=== PATIENT | female | born 1965 | race Caucasian/White ===

== ENCOUNTER 2017-08-06 16:33 | Inpatient (IN) | payer OTHER ==
[~2017-08-06] VITALS: Ht 160 cm; Wt 74.0 kg
[2017-08-06 16:35] VITALS: Ht 160 cm; Wt 74.0 kg
[2017-08-06] MEDS ORDERED: HYDROmorphONE 0.5 MG/0.5 ML SYG IM STA (17:40)
[2017-08-06] MEDS ORDERED: ONDANSETRON (ODT) 4 MG TAB ODT STA (17:40)
--- NOTE | 2017-08-06 18:03 | ERD ---
ER Documentation Chief Complaint Chief Complaint LEFT KNEE PAIN S/P FELL FROM STEP LADDER, NO KO, BIB RA 39 (RONNY WHALEN PA-C) HPI 52-year-old female complains of left posterior knee pain after falling off a step ladder this afternoon and "splitting her leg. She states that she was trying to go off of a stepladder and she fell and her leg fell externally. She states that she is felt like her legs were splitting open, and has posterior severe pain behind the knee on the left side, she has numbness down her leg. She denies any lower extremity pain besides the knee, foot or ankle pain. (RONNY WHALEN PA-C) ROS All systems reviewed and are negative except as per history of present illness. (RONNY WHALEN PA-C) Medications Home Meds Discontinued Reported Medications [None] No Conflict Check 01/10/15 Allergies Allergies: Coded Allergies: Penicillins (Unverified Allergy, Mild, RASHES; ITCH, 08/06/17) ampicillin (Unverified Allergy, Mild, RASHES; ITCH, 08/06/17) PMhx/Soc History of Surgery: Yes ([facility]) Anesthesia Reaction: Yes (N/V) Hx Neurological Disorder: No Hx Respiratory Disorders: No Hx Cardiac Disorders: No Hx Psychiatric Problems: No Hx Miscellaneous Medical Probl: No Hx Alcohol Use: Yes () Hx Substance Use: No Hx Tobacco Use: No (2010) Smoking Status: Former smoker (RONNY WHALEN PA-C) Physical Exam Vitals Vital Signs Date Time Temp Pulse Resp B/P Pulse Ox O2 Delivery O2 Flow Rate FiO2 08/07/17 00:49 78 18 112/76 97 Room Air 08/06/17 22:30 76 18 104/77 99 Room Air 08/06/17 20:29 98.1 72 20 138/69 98 Room Air 08/06/17 16:35 98.9 72 18 182/71 100 (MARK MUKHERJEE MD) Physical Exam General: Well-developed, well-nourished. The patient appears in no acute distress. HEENT: Head is normocephalic, atraumatic. No scleral icterus. Neck: Supple. Nontender. Lungs: Clear to auscultation. Normal air movement. Heart: Regular rate and rhythm. S1 and S2 are normal. No murmurs, gallops, or rubs. Abdomen: Nondistended. Extremities: Patient has limited range of motion of flexion, she has her leg hyperextended, no gross bony deformities on examination. Patient's dorsalis pedis pulses are 2+ bilaterally. Neurologic: Alert and oriented 3. No focal deficits. Normal speech and gait. Skin: Normal turgor. No rash or lesions. (RONNY WHALEN PA-C) Result Diagram: 08/06/17200808/06/172008 Results 24 hrs Laboratory Tests Test 08/06/17 20:09 White Blood Count 9.710^3/ul Red Blood Count 4.5210^6/ul Hemoglobin 12.3g/dl Hematocrit 38.1% Mean Corpuscular Volume 84.3fl Mean Corpuscular Hemoglobin 27.2pg Mean Corpuscular Hemoglobin Concent 32.3g/dl Red Cell Distribution Width 15.0% Platelet Count 21438^3/UL Mean Platelet Volume 10.4fl Neutrophils % 86.1% Lymphocytes % 10.0% Monocytes % 3.2% Eosinophils % 0.2% Basophils % 0.2% Nucleated Red Blood Cells % 0.0/100WBC Neutrophils # 8.310^3/ul Lymphocytes # 1.010^3/ul Monocytes # 0.310^3/ul Eosinophils # 0.010^3/ul Basophils # 0.010^3/ul Nucleated Red Blood Cells # 0.010^3/ul Prothrombin Time 13.1Sec Prothrombin Time Ratio 1.0 INR International Normalized Ratio 0.99 Activated Partial Thromboplast Time 33.1Sec Sodium Level 141mmol/L Potassium Level 3.6mmol/L Chloride Level 102mmol/L Carbon Dioxide Level 25mmol/L Anion Gap 18 Blood Urea Nitrogen 11mg/dl Creatinine 0.84mg/dl Glucose Level 96mg/dl Calcium Level 9.3mg/dl Troponin I < 0.012ng/ml Current Medications Medications (Trade) Dose Ordered Sig/Arnav Route PRN Reason Start Time Stop Time Status Last Admin Dose Admin Hydromorphone HCl (Dilaudid) 0.5 mg ONCE STAT IM 08/06/17 17:40 08/06/17 17:42 DC 08/06/17 17:52 Ondansetron HCl (Zofran Odt) 4 mg ONCE STAT ODT 08/06/17 17:40 08/06/17 17:42 DC 08/06/17 17:52 Hydromorphone HCl (Dilaudid) 1 mg ONCE STAT IM 08/06/17 18:42 08/06/17 19:25 DC Hydromorphone HCl (Dilaudid) 1 mg ONCE STAT IV 08/06/17 19:22 08/06/17 19:24 DC 08/06/17 19:57 Ondansetron HCl 4 mg 4 mg ONCE STAT IV 08/06/17 19:22 08/06/17 19:24 DC 08/06/17 20:01 Sodium Chloride (NS) 1,000 ml @ 1,000 mls/hr Q1H ONCE IV 08/06/17 19:30 08/06/17 20:29 DC 08/06/17 20:01 Hydromorphone HCl (Dilaudid) 1 mg ONCE STAT IV 08/06/17 20:54 08/06/17 20:55 DC 08/06/17 21:01 Ondansetron HCl (Zofran Inj) 4 mg ONCE STAT IV 08/06/17 20:54 08/06/17 20:55 DC 08/06/17 21:01 Hydromorphone HCl (Dilaudid) 1 mg ONCE STAT IV 08/06/17 22:57 08/06/17 22:58 DC 08/06/17 23:04 Ondansetron HCl (Zofran Inj) 4 mg ONCE STAT IV 08/06/17 22:57 08/06/17 22:58 DC 08/06/17 23:04 Hydromorphone HCl (Dilaudid) 1 mg ONCE ONCE IV 08/07/17 01:45 08/07/17 01:46 DC (MARK MUKHERJEE MD) Results 24 hrs 12-lead EKG(interpreted by supervising physician): Reviewed by Dr. Morrow Rate/Rhythm: Normal Sinus Rhythm, rate of 74 QRS, ST, T-waves: No changes consistent w/ acute ischemia, no intervals, no dysrhythmias, no ectopy Impression: No evidence of ischemia or arrhythmia DIAGNOSTIC IMAGING REPORT Patient: DYLON ESTEVES : 1965 Age: 52 Sex: F MR #: [id number] DOS: 08/06/17 1756 Ordering MD: MARLEE, RONNY PA-C Location: [facility] Room/Bed: PROCEDURE: Left knee x-ray. CLINICAL INDICATION: Trauma to left knee TECHNIQUE: AP, oblique and lateral views of the left knee. COMPARISON: None FINDINGS: Comminuted intra-articular fracture of the lateral and medial tibial plateau. Recommend CT correlation. Depressed central fragment seen at the lateral tibial plateau. Lipohemarthrosis. IMPRESSION: Comminuted interarticular fracture of the lateral and medial tibial plateau, and recommend CT correlation. RPTAT: [facility] Physician Mateus Date Time Electronically viewed and signed by Physician Mateus on 08/06/2017 19:13 RS/ CC: RONNY WHALEN PA-C (RONNY WHALEN PA-C) Procedures/MDM The course: Patient was given Dilaudid 0.5 mg IM, and Zofran 4 mg ODT. 52-year-old female comes in with left knee pain after trauma, coming in with a comminuted intra-articular fracture of the lateral and medial tibial plateau, CT of the lower extremity will be ordered at this time. The patient does have good pulses and is neurovascularly intact. CT results pending at this time prior to counseling alternate orthopedics. Preop labs and workup will be initiated. Patient's blood pressure was elevated (>120/80) but appears stable without evidence of hypertension emergency or urgency. The patient was counseled about the risks of hypertension and urged to pursue outpatient monitoring and therapy within a week with their primary care physician. (RONNY WHALEN PA-C) I was informed at midnight that the patient had been admitted on a previous shift to hospitalist for tibial plateau fracture. Nursing requested that I order additional pain medications. I evaluated the patient, and she did not have a splint on her left leg. I was informed that the patient had refused a splint. I advised the nurse and patient that a splint is completely necessary, as well as elevation of the extremity. The patient had soft compartments, no pain with passive range of motion of the ankle or great toe, and a 2+ palpable DP pulse. I spoke with Dr. Astorga, orthopedic surgeon on-call, and he agreed to see the patient. Spoke with Dr. Lord, who agreed to admit the patient. I ensured that a splint was placed and the limb was elevated. I will check a CK. (MARK MUKHERJEE MD) Departure Diagnosis: Primary Impression: Tibial plateau fracture, left Condition: RONNY Mcfadden PA-C Aug 06, 2017 18:03 MARK MUKHERJEE MD Aug 07, 2017 02:01
[2017-08-06] MEDS ORDERED: HYDROmorphONE 1 MG/ML SYG IM STA (18:42)
--- NOTE | 2017-08-06 19:13 | RADRPT ---
PROCEDURE: Left knee x-ray. CLINICAL INDICATION: Trauma to left knee TECHNIQUE: AP, oblique and lateral views of the left knee. COMPARISON: None FINDINGS: Comminuted intra-articular fracture of the lateral and medial tibial plateau. Recommend CT correlati on. Depressed central fragment seen at the lateral tibial plateau. Lipohemarthrosis. IMPRESSION: Comminuted interarticular fracture of the lateral and medial tibial plateau, and recommend CT correl ation. RPTAT: [facility] Physician Mateus Date Time Electronically viewed and signed by Talat Kaba Physician on 08/06/2017 19:13 RS/
[2017-08-06] MEDS ORDERED: HYDROmorphONE 1 MG/ML SYG IV STA ×3 (19:22→22:57)
[2017-08-06] MEDS ORDERED: ONDANSETRON 4 MG INJ IV STA ×3 (19:22→22:57)
[2017-08-06] MEDS ORDERED: SOD CHLORIDE 0.9% 1,000 ML IV ONE (19:30)
[2017-08-06 20:29] VITALS: TEMP 98.1
[2017-08-06 20:34] LABS: BASOPHILS % 0.2 % (0.0-2.0); EOSINOPHILS % 0.2 % (0.0-7.0); HEMATOCRIT 38.1 % (37.0-47.0); HEMOGLOBIN 12.3 g/dl (12.0-16.0); MEAN CORPUSCULAR HEMOGLOBIN 27.2 pg (29.0-33.0); MEAN CORPUSCULAR HGB CONC 32.3 g/dl (32.0-37.0); MEAN CORPUSCULAR VOLUME 84.3 fl (82.0-101.0); MEAN PLATELET VOLUME 10.4 fl (7.4-10.4); MONOCYTE # 0.3 10^3/ul (0.3-0.9); MONOCYTES % 3.2 % (0.0-11.0); NEUTROPHIL # 8.3 10^3/ul (1.6-7.5); NEUTROPHILS % 86.1 % (39.0-77.0); PLATELET COUNT 176 10^3/UL (140-415); RED BLOOD COUNT 4.52 10^6/ul (4.20-5.40); WHITE BLOOD COUNT 9.7 10^3/ul (4.8-10.8)
[2017-08-06 20:50] LABS: INR 0.99; PROTIME 13.1 Sec (12.2-14.2)
[2017-08-06 20:51] LABS: PARTIAL THROMBOPLASTIN TIME 33.1 Sec (25.0-35.0)
--- NOTE | 2017-08-06 20:51 | RADRPT ---
PROCEDURE: XR Chest. CLINICAL INDICATION: Abdominal Pain TECHNIQUE: Single frontal view of the chest was obtained COMPARISON: None FINDINGS: The heart and mediastinum are within normal limits. The lungs are clear. There is no pleural effusion or pneumothorax. Degenerative changes of the shoulder joints are present. IMPRESSION: 1. No acute cardiopulmonary disease. RPTAT:AAJJ Physician Marianna Date Time Electronically viewed and signed by Juana Florse Physician on 08/06/2017 20:51 QL/
[2017-08-06 20:53] LABS: ANION GAP 18 (8-16); BLOOD UREA NITROGEN 11 mg/dl (7-20); CALCIUM 9.3 mg/dl (8.4-10.2); CARBON DIOXIDE 25 mmol/L (21-31); CHLORIDE 102 mmol/L (97-110); CREATININE 0.84 mg/dl (0.44-1.00); GLUCOSE 96 mg/dl (70-220); POTASSIUM 3.6 mmol/L (3.5-5.1); SODIUM 141 mmol/L (135-144)
[2017-08-06 21:06] LABS: TROPONIN-I < 0.012 ng/ml (0.00-0.12)
--- NOTE | 2017-08-06 21:16 | RADRPT ---
PROCEDURE: CT left knee without contrast. CLINICAL INDICATION: Tibial plateau fracture on radiographs TECHNIQUE: CT scan of the left knee was performed on a multi -slice scanner. No IV contrast was a dministered. Coronal and sagittal reformatted images were obtained from the axial source images. T he total exam DLP equals 804 mGy-cm. The CDTI volume was 18 mGy. Images were reviewed on a high-reso Player X PACS workstation. DICOM images are available. One or more of the following dose reduction techniques were used: Automated exposure control Adjustment of the mA and/or kV according to patient size. Use of iterative reconstruction technique. COMPARISON: Same day radiographs FINDINGS: As seen on the radiographs, there is a displaced comminuted vertical/compression fracture of the tib ial plateau involving the medial and lateral tibial plateau as well as the tibial spines. There is a t least 1.2 cm depression of a medial portion of the lateral tibial plateau fracture. There is also about 8-9 mm posterior displacement of the more posterior fracture fragment with up to a 1.2 cm gap between the anterior and posterior fracture fragments. There are several displaced comminuted fractu re fragments within the central portion of the fracture also originating from the medial and lateral tibial plateau with rotation of some of these fragments which extend into the intercondylar notch a djacent to the distal femur and ACL. There is also cortical step-off of the fracture involving the m edial tibial plateau of about 3 mm with a gap between the anterior posterior fracture fragments up t o about 1.0 cm. There is also a mildly displaced comminuted oblique fracture of the fibular head extending to the pr oximal tibiofibular joint. There is a small cortical fracture of the medial aspect of the medial patella on axial images 34 - 3 5 series 3. The distal femur is intact without a discrete fracture. There is a [id number] joint effusion with lipohemarthrosis and small foci of gas within the s uprapatellar compartment. There is soft tissue stranding with edema and hemorrhage along the anterior and medial knee. There is soft tissue stranding with enlargement of the vastus medialis muscle due to the fracture. RPTAT: AA IMPRESSION: 1. Displaced comminuted vertical/compression type fracture of the tibial plateau involving the media l, central, and lateral tibial plateau extending to the tibial spines with up to about a 1.2 cm gap between the anterior and posterior fracture fragments and depression of the subchondral surface. 2. Mildly displaced comminuted oblique fracture of the fibular head extending to the proximal tibiof ibular joint. 3. Small cortical fracture of the medial aspect of the medial patella. 4. Moderate to large joint effusion with lipohemarthrosis and small foci of gas within the suprapate llar compartment. 5. Edema and hemorrhage within the subcutaneous soft tissues of the anterior and medial knee. .Kati Laar MD, MD Date Time Electronically viewed and signed by .Kati Lara MD, MD on 08/06/2017 21:15 .T/
[2017-08-07] MEDS ORDERED: HYDROmorphONE 1 MG/ML SYG IV ONE (01:45)
[2017-08-07] MEDS ORDERED: ONDANSETRON 4 MG INJ IV PRN ×2 (02:00→02:30)
[2017-08-07] MEDS ORDERED: ACETAMINOPHEN 325 MG TAB PO PRN ×2 (02:00→02:30)
[2017-08-07] MEDS ORDERED: NACL 0.9% 3 ML SYG IV SCH (02:30)
[2017-08-07] MEDS ORDERED: ALBUTEROL/IPRATROPIUM (NEB) 3 ML AMP HHN PRN (02:30)
[2017-08-07 03:36] VITALS: BP 153/84; RESP 20
[2017-08-07 05:09] LABS: BASOPHILS % 0.5 % (0.0-2.0); EOSINOPHILS # 0.1 10^3/ul (0.0-0.5); EOSINOPHILS % 1.9 % (0.0-7.0); HEMATOCRIT 31.6 % (37.0-47.0); LYMPHOCYTES # 1.8 10^3/ul (0.8-2.9); LYMPHOCYTES % 28.3 % (15.0-51.0); MEAN CORPUSCULAR HGB CONC 34.8 g/dl (32.0-37.0); MEAN CORPUSCULAR VOLUME 91.9 fl (82.0-101.0); MEAN PLATELET VOLUME 11.3 fl (7.4-10.4); MONOCYTE # 0.8 10^3/ul (0.3-0.9); MONOCYTES % 12.5 % (0.0-11.0); NEUTROPHIL # 3.6 10^3/ul (1.6-7.5); NEUTROPHILS % 56.3 % (39.0-77.0); PLATELET COUNT 142 10^3/UL (140-415); RED BLOOD COUNT 3.44 10^6/ul (4.20-5.40); RED CELL DISTRIBUTION WIDTH 13.1 % (11.5-14.5); WHITE BLOOD COUNT 6.4 10^3/ul (4.8-10.8)
[2017-08-07 05:29] LABS: ALBUMIN 4.4 g/dl (3.3-4.9); ALBUMIN/GLOBULIN RATIO 1.57; BILIRUBIN,INDIRECT 0.3 mg/dl (0-1.1); BILIRUBIN,TOTAL 0.3 mg/dl (0.2-1.3); CALCIUM 9.8 mg/dl (8.4-10.2); MAGNESIUM 1.7 mg/dl (1.7-2.5); PHOSPHORUS 3.3 mg/dl (2.5-4.9); POTASSIUM 4.6 mmol/L (3.5-5.1); TOTAL PROTEIN 7.2 g/dl (6.1-8.1)
[2017-08-07] MEDS: HYDROmorphONE 0.5 MG/0.5 ML SYG IV PRN ×2 (06:09→09:58)
[2017-08-07 07:26] VITALS: BP 115/61; RESP 20
[2017-08-07] MEDS: HEPARIN 5,000 UNIT/0.5 ML VIAL SC SCH ×2 (08:07→21:42)
--- NOTE | 2017-08-07 08:26 | HP ---
Date/Time of Note Date/Time of Note DATE: 08/07/17 TIME: 08:20 Assessment/Plan Lines/Catheters Urinary Cath still in place: Yes Assessment/Plan Assessment/Plan 1. Tibia fx s/p fall from ladder - pain mgmt -awaiting ortho eval - pt now with splint. keep leg elevated HPI/ROS Admit Date/Time Admit Date/Time Aug 07, 2017 at 01:57 Hx of Present Illness This is a 52 yo female who presented to ER c/o left LE/knee pain. She fell off ladder injuring her left leg. She c/o severe pain. In ER, imaging showed left tibia fx. Currently vitals are stable and basic labs within acceptable range. PMH/Family/Social Social History Smoking Status: Current some day smoker Exam/Review of Systems Vital Signs Vitals Vital Signs Date Time Temp Pulse Resp B/P Pulse Ox O2 Delivery O2 Flow Rate FiO2 08/07/17 07:26 98.6 85 20 115/61 95 08/07/17 00:49 Room Air Labs Result Diagram: 08/07/17 0501 08/07/17 0501 Medications Medications Current Medications Ondansetron HCl (Zofran Inj) 4 mg Q6H PRN IV NAUSEA AND/OR VOMITING; Start at 02:30 Acetaminophen (Tylenol Tab) 650 mg Q6H PRN PO PAIN LEVEL 1-3 OR FEVER; Start 08/07/17 at 02:30 Morphine Sulfate (morphine) 4 mg Q4H PRN IV SEVERE PAIN LEVEL 7-10; Start at 02:30 Hydromorphone HCl (Dilaudid) 0.5 mg Q4H PRN IV SEVERE PAIN LEVEL 7-10 Last administered on 08/07/17t 06:09; Admin Dose 0.5 MG; Start 08/07/17 at 02:30 Heparin Sodium (Porcine) (Heparin (5000 Units/0.5 ml)) 5,000 unit Q12 SC ; Start 08/07/17 at 09:00 EMILY MALIN MD Aug 07, 2017 08:26
[2017-08-07] MEDS: HYDROmorphONE 1 MG/ML SYG IV PRN ×4 (10:51→21:33)
[2017-08-07 14:26] VITALS: BP 111/60; RESP 20
[2017-08-07 20:00] VITALS: BP 126/67; RESP 20
[2017-08-07] MEDS: DIPHENHYDRAMINE 25 MG CAP PO PRN (22:00)
--- NOTE | 2017-08-08 01:06 | CONS ---
DATE OF ADMISSION: 08/07/2017 DATE OF CONSULTATION: 08/07/2017 TYPE OF CONSULTATION: Orthopedic Surgery HISTORY OF PRESENT ILLNESS: The patient is a 52-year-old female, who was admitted on the July when she came to the Emergency Room complaining of painful limit of motion involving her left knee. According to the patient, she fell off a stepladder when and developed painful swelling and limit of motion, following a twisting injury. At the time of the injury, she felt like her knee was being split open, which was followed by pain over the posterior aspect of the left knee. She also had a numbness radiating from her knee down to her leg. Following initial evaluation in the Emergency Room, which showed the presence of fracture involving the tibial plateau, her left knee was immobilized in a posterior splint and she was admitted. PHYSICAL EXAMINATION: My examination her left knee was already immobilized in a posterior splint. There was no evidence of acute circulatory compromise and she was able to move her foot and toes; however, there was an numbness in the 1st web space, suggesting that she may have some injury to the deep peroneal nerve. DIAGNOSTIC DATA: The x-rays and CT scan of the left knee was reviewed and it revealed the presence of tibial plateau fracture. Mainly involving the posteromedial portion of the tibial plateau. The fracture has since become comminuted and partially depressed. IMPRESSION: 1. Tibial plateau fracture of the left knee, mainly involving medial and posterior aspect of the tibial plateau that is comminuted, depressed, and displaced. 2. Partial neurapraxia involving on the peroneal nerve. PLAN: Treatment plan is partial ORIF of the tibial plateau fracture of the left knee with possible bone grafting. ADDENDUM: Because of the unusual configuration of the fracture, which is mainly involving the posterior wall aspect of the tibial plateau, she may need a transfer to a major trauma center for the higher level of care. Dictated By: In Angeles Astorga MD /chary/maxine /Document#: [id number]
[2017-08-08] MEDS: HYDROmorphONE 1 MG/ML SYG IV PRN ×4 (01:44→16:04)
[2017-08-08 02:00] VITALS: BP 118/81; RESP 20
[2017-08-08 07:11] LABS: BASOPHILS % 0.2 % (0.0-2.0); EOSINOPHILS # 0.1 10^3/ul (0.0-0.5); EOSINOPHILS % 1.3 % (0.0-7.0); HEMATOCRIT 31.8 % (37.0-47.0); HEMOGLOBIN 10.1 g/dl (12.0-16.0); LYMPHOCYTES # 1.6 10^3/ul (0.8-2.9); MEAN CORPUSCULAR HEMOGLOBIN 27.2 pg (29.0-33.0); MEAN CORPUSCULAR HGB CONC 31.8 g/dl (32.0-37.0); MEAN CORPUSCULAR VOLUME 85.7 fl (82.0-101.0); MEAN PLATELET VOLUME 10.7 fl (7.4-10.4); MONOCYTE # 0.5 10^3/ul (0.3-0.9); MONOCYTES % 7.5 % (0.0-11.0); NEUTROPHIL # 3.9 10^3/ul (1.6-7.5); NEUTROPHILS % 64.7 % (39.0-77.0); PLATELET COUNT 130 10^3/UL (140-415); RED BLOOD COUNT 3.71 10^6/ul (4.20-5.40); RED CELL DISTRIBUTION WIDTH 14.6 % (11.5-14.5)
[2017-08-08 07:34] LABS: CALCIUM 8.6 mg/dl (8.4-10.2); CREATININE 0.69 mg/dl (0.44-1.00); MAGNESIUM 1.6 mg/dl (1.7-2.5); PHOSPHORUS 3.6 mg/dl (2.5-4.9); POTASSIUM 3.4 mmol/L (3.5-5.1)
[2017-08-08 08:20] VITALS: BP 125/72; RESP 20
[2017-08-08] MEDS: DIPHENHYDRAMINE 25 MG CAP PO PRN ×2 (08:57→21:56)
[2017-08-08] MEDS: HEPARIN 5,000 UNIT/0.5 ML VIAL SC SCH ×2 (09:00→21:00)
[2017-08-08] MEDS ORDERED: MAGNESIUM SULFATE 2 GM/50 ML 50 ML IVPB ONE (10:30)
--- NOTE | 2017-08-08 11:57 | PN ---
Date/Time of Note Date/Time of Note DATE: 08/08/17 TIME: 11:55 Assessment/Plan VTE Prophylaxis VTE Prophylaxis Intervention: heparin Lines/Catheters IV Catheter Type (from Nrs): Saline Lock Assessment/Plan Chief Complaint/Hosp Course 1. Tibia fx s/p fall from ladder - pain mgmt -CT of lower extremity shows displaced comminuted compression type fracture of the tibial plateau involving the medial central and lateral tibial plateau extending to the tibial spines Patient also has a mildly displaced comminuted oblique fracture of the fibular head and a small cortical fracture of the medial aspect of the medial patella, patient also has moderate to large joint effusion and small foci of gas within the suprapatellar compartment with edema and hemorrhage within the subcu soft tissues of the anterior medial knee -Other eval appreciated, patient may require transfer to a trauma orthopedic center, will follow up on recommendations Prophylaxis: Heparin Problems: Subjective 24 Hr Interval Summary Constitutional: no complaints Exam/Review of Systems Vital Signs Vitals Vital Signs Date Time Temp Pulse Resp B/P Pulse Ox O2 Delivery O2 Flow Rate FiO2 08/08/17 08:20 98.9 85 20 125/72 94 08/07/17 00:49 Room Air Intake and Output 08/07/17 08/07/17 08/08/17 15:00 23:00 07:00 Intake Total 960 ml Output Total 950 ml Balance 10 ml Exam Constitutional: alert, oriented Respiratory: clear to auscultation Cardiovascular: regular rate and rhythm Gastrointestinal: soft, No distended Musculoskeletal: nl extremities to inspection Results Result Diagram: 08/08/17 0615 08/08/17 0615 Results 24 hrs Laboratory Tests Test 08/08/17 06:15 White Blood Count 6.0 Red Blood Count 3.71 L Hemoglobin 10.1 L Hematocrit 31.8 L Mean Corpuscular Volume 85.7 Mean Corpuscular Hemoglobin 27.2 L Mean Corpuscular Hemoglobin Concent 31.8 L Red Cell Distribution Width 14.6 H Platelet Count 130 L Mean Platelet Volume 10.7 H Neutrophils % 64.7 Lymphocytes % 26.0 Monocytes % 7.5 Eosinophils % 1.3 Basophils % 0.2 Nucleated Red Blood Cells % 0.0 Neutrophils # 3.9 Lymphocytes # 1.6 Monocytes # 0.5 Eosinophils # 0.1 Basophils # 0.0 Nucleated Red Blood Cells # 0.0 Sodium Level 140 Potassium Level 3.4 L Chloride Level 102 Carbon Dioxide Level 28 Anion Gap 13 Blood Urea Nitrogen 8 # Creatinine 0.69 Glucose Level 101 # Calcium Level 8.6 Phosphorus Level 3.6 Magnesium Level 1.6 L Medications Medications Current Medications Ondansetron HCl (Zofran Inj) 4 mg Q6H PRN IV NAUSEA AND/OR VOMITING; Start at 02:30 Acetaminophen (Tylenol Tab) 650 mg Q6H PRN PO PAIN LEVEL 1-3 OR FEVER; Start 08/07/17 at 02:30 Morphine Sulfate (morphine) 4 mg Q4H PRN IV SEVERE PAIN LEVEL 7-10; Start at 02:30 Heparin Sodium (Porcine) (Heparin (5000 Units/0.5 ml)) 5,000 unit Q12 SC Last administered on 08/08/17 09:00; Admin Dose 5,000 UNIT; Start 08/07/17 at 09: 00 Hydromorphone HCl (Dilaudid) 1 mg Q3H PRN IV PAIN LEVEL 7-10 Last administered on 08/08/17 09:59; Admin Dose 1 MG; Start 08/07/17 at 10:30 Diphenhydramine HCl 25 mg 25 mg Q6H PRN PO ITCHING Last administered on 08:57; Admin Dose 25 MG; Start 08/07/17 at 22:00 Potassium Chloride 250 ml @ 62.5 mls/hr ONCE ONCE IVPB ; Start 08/08/17 at 13 :00; Stop 08/08/17 at 16:59 Magnesium Sulfate (Magnesium Sulfate 2 Gm/50 ml) 50 ml @ 25 mls/hr ONCE ONCE IVPB Last administered on 08/08/17 11:38; Admin Dose 25 MLS/HR; Start at 10:30; Stop 08/08/17 at 12:29 JANAY MONAHAN Aug 08, 2017 11:57
[2017-08-08] MEDS ORDERED: POTASSIUM CHLORIDE 250 ML IVPB ONE (13:00)
[2017-08-08 14:33] VITALS: BP 129/71; RESP 20
[2017-08-08 20:34] VITALS: BP 113/62; PULSE 89; RESP 16
[2017-08-08] MEDS: morphine 4 MG/ML VIAL IV PRN (20:40)
[2017-08-09] MEDS: HEPARIN 5,000 UNIT/0.5 ML VIAL SC SCH ×3 (00:18→20:36)
[2017-08-09] MEDS: SENNA TAB PO SCH ×3 (00:20→20:29)
[2017-08-09] MEDS ORDERED: MAGNESIUM HYDROXIDE 30ML CUP PO PRN (00:30)
[2017-08-09] MEDS ORDERED: DIPHENHYDRAMINE 25 MG CAP PO PRN (01:00)
[2017-08-09 02:00] VITALS: BP 117/67; RESP 20
[2017-08-09] MEDS: morphine 4 MG/ML VIAL IV PRN (02:54)
[2017-08-09 06:45] LABS: BASOPHILS % 0.2 % (0.0-2.0); EOSINOPHILS # 0.1 10^3/ul (0.0-0.5); EOSINOPHILS % 1.6 % (0.0-7.0); HEMATOCRIT 30.4 % (37.0-47.0); HEMOGLOBIN 9.7 g/dl (12.0-16.0); LYMPHOCYTES # 1.5 10^3/ul (0.8-2.9); LYMPHOCYTES % 30.5 % (15.0-51.0); MEAN CORPUSCULAR HEMOGLOBIN 27.3 pg (29.0-33.0); MEAN CORPUSCULAR HGB CONC 31.9 g/dl (32.0-37.0); MEAN CORPUSCULAR VOLUME 85.6 fl (82.0-101.0); MEAN PLATELET VOLUME 10.7 fl (7.4-10.4); MONOCYTE # 0.3 10^3/ul (0.3-0.9); MONOCYTES % 6.1 % (0.0-11.0); NEUTROPHIL # 3.1 10^3/ul (1.6-7.5); NEUTROPHILS % 61.4 % (39.0-77.0); PLATELET COUNT 130 10^3/UL (140-415); RED BLOOD COUNT 3.55 10^6/ul (4.20-5.40); RED CELL DISTRIBUTION WIDTH 14.7 % (11.5-14.5); WHITE BLOOD COUNT 5.1 10^3/ul (4.8-10.8)
[2017-08-09 06:51] LABS: POSITIVE DIFF @See below
[2017-08-09 07:04] LABS: CALCIUM 8.8 mg/dl (8.4-10.2); CREATININE 0.69 mg/dl (0.44-1.00); MAGNESIUM 1.8 mg/dl (1.7-2.5)
[2017-08-09 07:27] VITALS: BP 131/79; RESP 20
[2017-08-09] MEDS: HYDROCODONE/APAP (10/325) TAB PO PRN ×2 (11:44→20:54)
--- NOTE | 2017-08-09 12:10 | PN ---
Date/Time of Note Date/Time of Note DATE: 08/09/17 TIME: 12:08 Assessment/Plan VTE Prophylaxis VTE Prophylaxis Intervention: heparin Lines/Catheters IV Catheter Type (from Nrs): Saline Lock Assessment/Plan Chief Complaint/Hosp Course 1. Tibia fx s/p fall from ladder - pain mgmt -CT of lower extremity shows displaced comminuted compression type fracture of the tibial plateau involving the medial central and lateral tibial plateau extending to the tibial spines Patient also has a mildly displaced comminuted oblique fracture of the fibular head and a small cortical fracture of the medial aspect of the medial patella, patient also has moderate to large joint effusion and small foci of gas within the suprapatellar compartment with edema and hemorrhage within the subcu soft tissues of the anterior medial knee -Other eval appreciated, patient requires transfer to a trauma orthopedic center , have discussed with adult protective caseworker of patient's IPA and will try to transfer the patient out today Prophylaxis: Heparin Problems: Subjective 24 Hr Interval Summary Constitutional: no complaints Exam/Review of Systems Vital Signs Vitals Vital Signs Date Time Temp Pulse Resp B/P Pulse Ox O2 Delivery O2 Flow Rate FiO2 08/09/17 07:27 98.2 80 20 131/79 97 08/08/17 20:34 Room Air Intake and Output 08/08/17 08/08/17 08/09/17 15:00 23:00 07:00 Intake Total 650 ml 1260 ml 400 ml Output Total 400 ml 800 ml 600 ml Balance 250 ml 460 ml -200 ml Exam Constitutional: alert, oriented Respiratory: clear to auscultation Cardiovascular: regular rate and rhythm Gastrointestinal: soft, No distended Musculoskeletal: No nl extremities to inspection Results Result Diagram: 08/09/17 0532 08/09/17 0532 Results 24 hrs Laboratory Tests Test 08/09/17 05:32 White Blood Count 5.1 Red Blood Count 3.55 L Hemoglobin 9.7 L Hematocrit 30.4 L Mean Corpuscular Volume 85.6 Mean Corpuscular Hemoglobin 27.3 L Mean Corpuscular Hemoglobin Concent 31.9 L Red Cell Distribution Width 14.7 H Platelet Count 130 L Mean Platelet Volume 10.7 H Neutrophils % 61.4 Lymphocytes % 30.5 Monocytes % 6.1 Eosinophils % 1.6 Basophils % 0.2 Nucleated Red Blood Cells % 0.0 Neutrophils # 3.1 Lymphocytes # 1.5 Monocytes # 0.3 Eosinophils # 0.1 Basophils # 0.0 Nucleated Red Blood Cells # 0.0 Sodium Level 142 Potassium Level 4.0 Chloride Level 103 Carbon Dioxide Level 31 Anion Gap 12 Blood Urea Nitrogen 6 L Creatinine 0.69 Glucose Level 95 Calcium Level 8.8 Magnesium Level 1.8 Medications Medications Current Medications Ondansetron HCl (Zofran Inj) 4 mg Q6H PRN IV NAUSEA AND/OR VOMITING; Start at 02:30 Acetaminophen (Tylenol Tab) 650 mg Q6H PRN PO PAIN LEVEL 1-3 OR FEVER; Start 08/07/17 at 02:30 Morphine Sulfate (morphine) 4 mg Q4H PRN IV SEVERE PAIN LEVEL 7-10 Last administered on 08/09/17 02:54; Admin Dose 4 MG; Start 08/07/17 at 02:30; Status Future Hold Heparin Sodium (Porcine) (Heparin (5000 Units/0.5 ml)) 5,000 unit Q12 SC Last administered on 08/09/17 11:34; Admin Dose 5,000 UNIT; Start 08/07/17 at 09: 00 Hydromorphone HCl (Dilaudid) 1 mg Q3H PRN IV PAIN LEVEL 7-10 Last administered on 08/08/17 16:04; Admin Dose 1 MG; Start 08/07/17 at 10:30; Status Future Hold Senna (Senokot) 2 tab BID PO Last administered on 08/09/17 09:50; Admin Dose 2 TAB; Start 08/09/17 at 00:30 Magnesium Hydroxide (Milk Of Mag) 30 ml DAILY PRN PO CONSTIPATION; Start 08/09 at 00:30 Diphenhydramine HCl (Benadryl) 50 mg Q6H PRN PO ITCHING Last administered on 03:49; Admin Dose 50 MG; Start 08/09/17 at 01:00 Acetaminophen/ Hydrocodone Bitart ([place] ()) 1 tab Q4H PRN PO PAIN Last administered on 08/09/17 11:44; Admin Dose 1 TAB; Start 08/09/17 at 06:30 JANAY MONAHAN Aug 09, 2017 12:10
[2017-08-09 13:53] VITALS: BP 143/64; RESP 20
[2017-08-09 19:52] VITALS: BP 120/82; RESP 18
[2017-08-10] MEDS: ZOLPIDEM 5 MG TAB PO PRN (00:14)
[2017-08-10] MEDS: KETOROLAC 30 MG INJ IV PRN ×2 (00:16→15:18)
[2017-08-10] MEDS: HYDROCODONE/APAP (10/325) TAB PO PRN ×2 (05:57→23:06)
[2017-08-10 07:34] VITALS: BP 124/68; RESP 20
[2017-08-10] MEDS: SENNA TAB PO SCH ×2 (09:17→21:14)
[2017-08-10] MEDS: HEPARIN 5,000 UNIT/0.5 ML VIAL SC SCH ×2 (09:28→21:16)
--- NOTE | 2017-08-10 13:27 | DS ---
Date/Time of Note Date/Time of Note DATE: 08/10/17 TIME: 13:23 Discharge Summary Admission/Discharge Info Admit Date/Time Aug 07, 2017 at 01:57 Discharge Date/Time August 10, 2017 Discharge Diagnosis 1. Tibia fx s/p fall from ladder - pain mgmt -CT of lower extremity shows displaced comminuted compression type fracture of the tibial plateau involving the medial central and lateral tibial plateau extending to the tibial spines Patient also has a mildly displaced comminuted oblique fracture of the fibular head and a small cortical fracture of the medial aspect of the medial patella, patient also has moderate to large joint effusion and small foci of gas within the suprapatellar compartment with edema and hemorrhage within the subcu soft tissues of the anterior medial knee -Ortho eval appreciated, patient requires transfer to a trauma orthopedic center , have discussed with nurse outreach case manager of patient's IPA and will try to transfer the patient out today Patient Condition: Good Hospital Course Patient is a 52 yo female who presented to ER c/o left LE/knee pain. She fell off ladder injuring her left leg. She c/o severe pain. In ER, imaging showed left tibia fx. patient had a CT scan of the lower extremity which showed a displaced comminuted compression type fracture of the tibial plateau involving the medial central and lateral tibial plateau extending to the tibial spines. Patient also has a mildly displaced comminuted oblique fracture of the fibular head and a small cortical fracture of the medial aspect of the medial patella, patient also has moderate to large joint effusion and small foci of gas within the suprapatellar compartment with edema and hemorrhage within the subcu soft tissues of the anterior medial knee. After review of the CT orthopedics decided that patient requires transfer to higher level of care for trauma orthopedics. Patient was arranged to be transferred to [facility] once a bed becomes available which reportedly is to be today. On the day of discharge patient's vitals, labs and physical exam are stable, she had no acute complaints and questions are answered. Home Meds Discontinued Reported Medications [None] No Conflict Check 01/10/15 Follow-up Plan Follow-up with physicians at [facility] Primary Care Provider Evan Serna Time spent on discharge: > 30 minutes JANAY MONAHAN Aug 10, 2017 13:27
[2017-08-10 14:38] VITALS: BP 127/70; RESP 20
[2017-08-10 20:55] VITALS: BP 128/62
[2017-08-11] MEDS: ZOLPIDEM 5 MG TAB PO PRN (00:32)
[2017-08-11 02:30] VITALS: BP 103/59; RESP 20
[2017-08-11] MEDS: HYDROCODONE/APAP (10/325) TAB PO PRN ×3 (03:15→21:22)
[2017-08-11 07:23] VITALS: BP 112/71; RESP 20
[2017-08-11] MEDS: SENNA TAB PO SCH ×3 (08:36→21:22)
[2017-08-11] MEDS: HEPARIN 5,000 UNIT/0.5 ML VIAL SC SCH ×2 (08:44→21:26)
[2017-08-11 14:10] VITALS: BP 118/67; RESP 20
--- NOTE | 2017-08-11 16:55 | PN ---
Date/Time of Note Date/Time of Note DATE: 08/11/17 TIME: 16:53 Assessment/Plan VTE Prophylaxis VTE Prophylaxis Intervention: LMWH Lines/Catheters IV Catheter Type (from Nrsg): Saline Lock Urinary Cath still in place: Yes Reason Cath still needed: urinary retention Assessment/Plan Chief Complaint/Hosp Course 52 yo female with tibial fracture requiring surgery, however per Dr Astorga would be better served at [facility], waiting for acceptance - Await transfer to tertiary center - Pain control - DVT ppx Problems: Subjective 24 Hr Interval Summary Free Text/Dictation I spoke with Dr Astorga, he is not willing to operate on her at this time, wants transfer Patient rejected from [facility] however, they don't feel like she needs higher level of care Exam/Review of Systems Vital Signs Vitals Vital Signs Date Time Temp Pulse Resp B/P Pulse Ox O2 Delivery O2 Flow Rate FiO2 08/11/17 14:10 98.3 76 20 118/67 97 08/08/17 20:34 Room Air Intake and Output 08/10/17 08/10/17 08/11/17 15:00 23:00 07:00 Intake Total 2640 ml Output Total 2000 ml Balance 640 ml Results Result Diagram: 08/09/17 0532 08/09/17 0532 Medications Medications Current Medications Ondansetron HCl (Zofran Inj) 4 mg Q6H PRN IV NAUSEA AND/OR VOMITING; Start at 02:30 Acetaminophen (Tylenol Tab) 650 mg Q6H PRN PO PAIN LEVEL 1-3 OR FEVER; Start 08/07/17 at 02:30 Morphine Sulfate (morphine) 4 mg Q4H PRN IV SEVERE PAIN LEVEL 7-10 Last administered on 08/09/17 02:54; Admin Dose 4 MG; Start 08/07/17 at 02:30; Status Future Hold Heparin Sodium (Porcine) (Heparin (5000 Units/0.5 ml)) 5,000 unit Q12 SC Last administered on 08/11/17 08:44; Admin Dose 5,000 UNIT; Start 08/07/17 at 09: 00 Hydromorphone HCl (Dilaudid) 1 mg Q3H PRN IV PAIN LEVEL 7-10 Last administered on 08/08/17 16:04; Admin Dose 1 MG; Start 08/07/17 at 10:30; Status Future Hold Senna (Senokot) 2 tab BID PO Last administered on 08/11/17 08:36; Admin Dose 2 TAB; Start 08/09/17 at 00:30 Magnesium Hydroxide (Milk Of Mag) 30 ml DAILY PRN PO CONSTIPATION Last administered on 08/09/17 20:31; Admin Dose 30 ML; Start 08/09/17 at 00:30 Diphenhydramine HCl (Benadryl) 50 mg Q6H PRN PO ITCHING Last administered on 03:49; Admin Dose 50 MG; Start 08/09/17 at 01:00 Acetaminophen/ Hydrocodone Bitart ([place] ()) 1 tab Q4H PRN PO PAIN Last administered on 08/11/17 14:25; Admin Dose 1 TAB; Start 08/09/17 at 06:30 Zolpidem Tartrate (Ambien) 10 mg HS PRN PO INSOMNIA Last administered on 00:32; Admin Dose 10 MG; Start 08/09/17 at 22:00 Ketorolac Tromethamine (Toradol) 30 mg Q6H PRN IV PAIN Last administered on 15:18; Admin Dose 30 MG; Start 08/09/17 at 22:00; Stop 08/12/17 at 21: 59 MARK BONILLA MD Aug 11, 2017 16:55
[2017-08-11 20:00] VITALS: BP 120/63; RESP 20
[2017-08-12] MEDS: HYDROCODONE/APAP (10/325) TAB PO PRN ×2 (01:35→13:02)
[2017-08-12 02:00] VITALS: BP 107/56; RESP 20
[2017-08-12] MEDS: ZOLPIDEM 5 MG TAB PO PRN (02:48)
[2017-08-12 07:26] VITALS: BP 114/57; RESP 20
[2017-08-12] MEDS: SENNA TAB PO SCH (08:33)
[2017-08-12] MEDS: HEPARIN 5,000 UNIT/0.5 ML VIAL SC SCH (10:06)
[2017-08-12 14:05] VITALS: BP 126/68; RESP 20
--- NOTE | 2017-08-12 14:43 | PN ---
DATE: 08/12/2017 SUBJECTIVE DATA: Following my initial consultation, the unusual nature of her fracture was explained to the family members and because of this unusual situation a possible transfer to the [facility] for higher level of care where people with more experienced in trauma was available. I received a call from orthopedic surgeon in [place] who had a discussion about her condition and I was not sure that he will arrange a transfer of this patient to [facility]. Until the morning of August 11, it was my understanding that she will be accepted in transfer to [facility]. However, in the early noon on 08/11/2017, I was informed that [facility] orthopedic surgeon decided not to except the patient in transfer. Because of this changes, I had a discussion with the patient and the family members and I offered the surgery in the [facility]. However, the patient and the family members were reluctant for having surgery in [facility]. They are well informed that in case they changed their mind and further attempt for transfer is not successful, my service to carry out the open reduction and internal fixation is available. Dictated By: In Angeles Astorga MD /[email or web address]/tameka /Document#: [id number]
--- NOTE | 2017-08-12 14:51 | PN ---
DATE: 08/12/2017 SUBJECTIVE DATA: No definite plan of transfer as of this a.m. on 08/12/2017. Had a meeting with the family members, namely the and the son and the patient herself and again my service to carry out the open reduction and internal fixation of the tibial plateau fracture of the involved knee was offered. They were still waiting for the meeting with the kit planner and hospital rep for possible transfer to the [facility] for the higher level of care. Again, they were informed that I am willing to carry out the open reduction and internal fixation if the transfer is not possible. Dictated By: In Angeles Astorga MD /[email or web address]/tameka /Document#: [id number]
[2017-08-12] MEDS: KETOROLAC 30 MG INJ IV PRN (16:37)
--- NOTE | 2017-08-12 16:58 | PN ---
Date/Time of Note Date/Time of Note DATE: 08/12/17 TIME: 16:57 Assessment/Plan VTE Prophylaxis VTE Prophylaxis Intervention: heparin Lines/Catheters IV Catheter Type (from Nrsg): Saline Lock Urinary Cath still in place: Yes Reason Cath still needed: urinary retention Assessment/Plan Chief Complaint/Hosp Course 52 yo female with tibial fracture requiring surgery, however per Dr Astorga would be better served at [facility], waiting for acceptance - Await transfer to tertiary center - Pain control - DVT ppx Problems: Subjective 24 Hr Interval Summary Free Text/Dictation Patient's family extremely upset, I stated I understand their frustration given bureaucratic delays [facility] Exam/Review of Systems Vital Signs Vitals Vital Signs Date Time Temp Pulse Resp B/P Pulse Ox O2 Delivery O2 Flow Rate FiO2 08/12/17 07:26 98.1 79 20 114/57 98 08/08/17 20:34 Room Air Intake and Output 08/11/17 08/11/17 08/12/17 15:00 23:00 07:00 Intake Total 1200 ml 1000 ml Output Total 1550 ml 1600 ml Balance -350 ml -600 ml Exam Knee immobilized, very swollen around joint Constitutional: alert, oriented, well developed Psych: nl mood/affect, no complaints Head: atraumatic, normocephalic Eyes: EOMI, PERRL, nl conjunctiva, nl lids, nl sclera ENMT: nl external ears & nose, nl lips & teeth, nl nasal mucosa & septum Neck: non-tender, supple Respiratory: clear to auscultation, normal air movement Cardiovascular: nl pulses, regular rate and rhythm Gastrointestinal: nl liver, spleen, non-tender, soft Musculoskeletal: nl extremities to inspection, nl gait and stance Extremities: normal pulses Neurological: TOWER TECHNICIAN II-XII intact, nl mental status, nl speech, nl strength Skin: nl turgor, No rash or lesions Lymph: nl lymph nodes Results Result Diagram: 08/09/1753108/09/17531 Medications Medications Current Medications Ondansetron HCl (Zofran Inj) 4 mg Q6H PRN IV NAUSEA AND/OR VOMITING; Start at 02:30 Acetaminophen (Tylenol Tab) 650 mg Q6H PRN PO PAIN LEVEL 1-3 OR FEVER; Start 08/07/17 at 02:30 Morphine Sulfate (morphine) 4 mg Q4H PRN IV SEVERE PAIN LEVEL 7-10 Last administered on 08/09/17 02:54; Admin Dose 4 MG; Start 08/07/17 at 02:30; Status Future Hold Heparin Sodium (Porcine) (Heparin (5000 Units/0.5 ml)) 5,000 unit Q12 SC Last administered on 08/12/17 10:06; Admin Dose 5,000 UNIT; Start 08/07/17 at 09: 00 Hydromorphone HCl (Dilaudid) 1 mg Q3H PRN IV PAIN LEVEL 7-10 Last administered on 08/08/17 16:04; Admin Dose 1 MG; Start 08/07/17 at 10:30; Status Future Hold Senna (Senokot) 2 tab BID PO Last administered on 08/12/17 08:33; Admin Dose 2 TAB; Start 08/09/17 at 00:30 Magnesium Hydroxide (Milk Of Mag) 30 ml DAILY PRN PO CONSTIPATION Last administered on 08/09/17 20:31; Admin Dose 30 ML; Start 08/09/17 at 00:30 Diphenhydramine HCl (Benadryl) 50 mg Q6H PRN PO ITCHING Last administered on 03:49; Admin Dose 50 MG; Start 08/09/17 at 01:00 Acetaminophen/ Hydrocodone Bitart ([place] (10/325)) 1 tab Q4H PRN PO PAIN Last administered on 08/12/17 13:02; Admin Dose 1 TAB; Start 08/09/17 at 06:30 Zolpidem Tartrate (Ambien) 10 mg HS PRN PO INSOMNIA Last administered on 02:48; Admin Dose 10 MG; Start 08/09/17 at 22:00 Ketorolac Tromethamine (Toradol) 30 mg Q6H PRN IV PAIN Last administered on 16:37; Admin Dose 30 MG; Start 08/09/17 at 22:00; Stop 08/12/17 at 21: 59 MARK BONILLA MD Aug 12, 2017 16:58
[2017-08-12 17:00] VITALS: BP 117/77; RESP 18
== END 2017-08-12 17:05 | disposition short-term general hospital (02) | DRG 563 ==
LOC: FTE 16:33 → MS2 08-07 01:57
PROVIDERS: ADMIT Internal Medicine; ATTEND Internal Medicine
DX: S82.252A Displaced comminuted fracture of shaft of left tibia, initial encounter for closed fracture (principal); F17.210 Nicotine dependence, cigarettes, uncomplicated; S82.452A Displaced comminuted fracture of shaft of left fibula, initial encounter for closed fracture; W11.XXXA Fall on and from ladder, initial encounter; Y93.9 Activity, unspecified; Y92.019 Unspecified place in single-family (private) house as the place of occurrence of the external cause; Y99.8 Other external cause status
CPT/HCPCS: 36415; 71010; 73562; 73700; 80048; 80053; 82550; 83735; 84100; 84484; 85025; 85610; 85730; 93005; 96372; 96374; 96375; 96376; J1170; J1644; J1885; J2270; J2405; J3475; J3480; J7030